=== PATIENT | male | born 1985 | race Caucasian/White ===

== ENCOUNTER 2016-09-01 01:00 | Inpatient (IN) | payer BC, MEDICARE ==
--- NOTE | ~2016-09-01 | DS ---
Unit #: [id number] #: [id number] Patient: IRINA ESTRADA [id number] [place] [address] [id number] MR#: [id number] NAME: IRINA ESTRADA ROOM: [facility] Age: 31 Sex: M Admission Date: 09/01/2016 : 1985 Discharge Date: 09/04/2016 Attending Physician: Terence Banks M.D. Primary Care Physician: Primary Care Physician No DISCHARGE SUMMARY REASON FOR ADMISSION The patient is a 31-year-old single white male, admitted to the [address] [place] [address] for alcohol detox. HOSPITAL COURSE The patient was admitted to the [address] [place] [address] unit, placed on routine detoxification protocol for alcohol. He was restarted on Seroquel with dosage increased to 400 mg at h.s. He continued to complain a poor sleep and staff reported that he was sleeping quite well on the hospital. The patient demanded an initiation of Ativan at nighttime, stating "it is the only thing that helps sleep." It was explained to the patient that this medication could not be provided given his extensive substance abuse history. The patient did receive one time dose of Rozerem on the evening of 09/03/2016, but did not respond well with that medication. On 09/04/2016 his detox was completed and he requested discharge. FINAL DIAGNOSES Alcohol use disorder; restless legs syndrome. DISPOSITION ON DISCHARGE The patient is discharged on the following medications: Requip 2 mg at 8 p.m. for restless legs syndrome; Seroquel 400 mg at bedtime for mood stabilization. DISCHARGE INSTRUCTIONS No dietary or physical restrictions were placed on the patient at the time of discharge. FOLLOWUP Follow up will take place in the chemical dependence treatment program provided by this facility and through the auspices of [facility]. PROGNOSIS The patient's prognosis is considered fair. Dictated by... Terence Banks M.D. ALMITA/kashif TD: 09/05/2016 02:52 Unit #: [id number] #: [id number] Patient: IRINA ESTRADA JOB #: [id number] DISCHARGE SUMMARY Page 1 of 1 X Terence Banks MD DISCHARGE SUMMARY
--- NOTE | ~2016-09-01 | PN ---
Unit #: [id number] #: [id number] Patient: IRINA ESTRADA [id number] [facility] [address] [place] [address] [id number] MR#: [id number] NAME: IRINA ESTRADA ROOM: P207 Age: 31 Sex: M Admission Date: 09/01/2016 : 1985 Attending Physician: Terence Banks M.D. Admitting Physician: Terence Banks M.D. Primary Care Physician: Primary Care Physician Roberta CORBETT NOTES DATE 09/03/2016 DISCUSSION The patient is active within the therapeutic milieu but continues to complain of severe insomnia which he states is the trigger for his alcohol use. He states to this physician "Ativan is the only thing that works." I have explained to the patient the Ativan is off the table given his substance abuse history. We will instead try Rozerem 8 mg this evening in hopes of addressing the patient's sleep issues with a non-abusable medication. Dictated by... Terence Banks M.D. CB/isidro TD: 09/03/2016 14:57 JOB #: [id number] CAT CORBETT NOTES Page 1 of 1 X Terence Banks MD PROGRESS NOTE
--- NOTE | ~2016-09-01 | HP ---
Unit #: [id number] #: [id number] Patient: PETAR ESTRADA [id number] [place] [address] [id number] MR#: [id number] NAME: PETAR ESTRADA ROOM: P207 Age: 31 Sex: M Admission Date: 09/01/2016 : 1985 Attending Physician: Terence Banks M.D. Admitting Physician: Terence Banks M.D. Primary Care Physician: Primary Care Physician No HISTORY AND PHYSICAL HISTORY OF PRESENT ILLNESS Petar is a 31 year old admitted to [address] [place] [address] because of his continued abuse of alcohol. PAST MEDICAL HISTORY 1. Long history of alcohol abuse. He continues to drink. 2. History of benzodiazepine abuse. He denies anything currently. PAST SURGICAL HISTORY Nothing reported. ALLERGIES No known drug allergies. SOCIAL HISTORY He smokes one pack per day. Drinks at least a fifth of liquor on a daily basis. Has a history of abusing benzodiazepines but denies anything currently. FAMILY HISTORY Medically noncontributory. REVIEW OF SYSTEMS CONSTITUTIONAL: No fever or chills. HEENT: Denies any sore throat, ear pain or runny nose. CARDIOVASCULAR: Denies chest pain, irregular heart rhythm or palpitations. CHEST: Denies shortness of breath or cough. No hemoptysis. GASTROINTESTINAL: Denies nausea, vomiting, diarrhea or chronic constipation. ENDOCRINE: Denies history of increased thirst or urination. No recent significant weight loss or gain. GENITOURINARY: Denies dysuria, frequency, or hematuria. SKIN: Denies any rashes. HEMATOLOGIC: Denies history of increased bleeding or bruising. MUSCULOSKELETAL: Denies any hot, swollen joints. No generalized muscle pain. NEUROLOGIC: Denies problems with vision or speech. No frequent, severe headaches. No numbness, tingling or weakness in any extremities. Denies loss of bladder or bowel control. CURRENT MEDICATIONS 1. Requip 2 mg q.h.s. Unit #: [id number] #: [id number] Patient: PETAR ESTRADA 2. Seroquel 300 mg q.h.s. 3. Inderal 20 mg t.i.d. 4. Multivitamin 1 q day 5. Milk of Magnesia p.r.n. 6. Maalox p.r.n. 7. Tylenol p.r.n. 8. Detox protocol PHYSICAL EXAMINATION GENERAL: Alert, well-nourished, in no apparent distress. VITAL SIGNS: Blood pressure 132/92, heart rate 100, respirations 16, temperature 98.6. WEIGHT: 226 pounds. HEIGHT: 6'2". SKIN: Warm and dry without rash or lesion. HEENT: Normocephalic. TMs not viewed. Oral and nasal passages clear. Conjunctivae clear. Pupils equal, round and reactive to light and accommodation. Extraocular movements intact. NECK: Supple without lymphadenopathy or thyromegaly. HEART: Regular rate and rhythm without murmur. LUNGS: Clear. ABDOMEN: Soft, nontender. : Not done. EXTREMITIES: No evidence of cyanosis, clubbing or edema. Moves all extremities without focal deficit. NEUROLOGICAL: Grossly within normal limits. Cranial Nerves: II: Visual macias are intact. III, IV AND : Extraocular movements are intact. Pupils are equal, round and reactive to light. V: Facial sensation is grossly normal. VII: Facial movements and expression are normal. VIII: Auditory acuity grossly intact. IX, X: Uvula is midline. Phonation is normal. XI: Patient shrugs shoulders and turns head normally. XII: Tongue protrudes in the midline. Sensory and Motor Function: Sensory and motor sensation is grossly normal. Motor: moves all extremities well. Coordination: Gait is normal. Deep Tendon Reflexes: Intact. IMPRESSION Psychiatric admission RECOMMENDATIONS PSYCHIATRIC: Per psychiatrist. MEDICAL: I see no contraindications to participating in facility's activities. MEDICAL PROGNOSIS Good. MEDICAL CONDITION Stable. Dictated by... Alyssa Coffman P.A.-C. for Unit #: [id number] #: [id number] Patient: PETAR ESTRADA Sridhar Walton/donald TD: 09/02/2016 00:00 JOB #: [id number] HISTORY AND PHYSICAL Page 1 of 1 X Alyssa Coffman HISTORY AND PHYSICAL
--- NOTE | ~2016-09-01 | PA ---
Unit #: [id number] #: [id number] Patient: IRINA ESTRADA [id number] [place] [address] [id number] MR#: [id number] NAME: IRINA ESTRADA ROOM: P214 Age: 31 Sex: M Admission Date: 09/01/2016 : 1985 Date of Assessment: 09/01/2016 Attending Physician: Terence Banks M.D. Admitting Physician: Terence Banks M.D. Primary Care Physician: Primary Care Physician No PSYCHIATRIC ASSESSMENT IDENTIFYING INFORMATION The patient is a 31-year-old white male admitted to the [facility] with recurrent alcohol use and some suicidal ideation. INFORMANT(S) Chart, patient could not be aroused for interview. CHIEF COMPLAINT None given. HISTORY OF PRESENT ILLNESS The patient is a 31-year-old white male who was apparently last admitted to this facility in 2015. The patient presented to this facility last evening accompanied by his mother. He was reporting that he has been drinking up to a fifth of hard liquor on a daily basis secondary to his inability sleep though the patient is snoring loudly during today's attempted interview. The patient was reporting more suicidal ideation secondary to his inability to sleep and said that he had multiple plans though he would not divulge them and states he has never acted on these thoughts before. The patient when seen today is noted to be sleeping soundly and multiple attempts to arouse him are bradley unsuccessful. PAST PSYCHIATRIC HISTORY The chart seems to indicate that the patient was admitted to this facility in May 2015. FAMILY HISTORY Noncontributory. SOCIAL HISTORY The patient has been drinking a fifth of hard liquor on a daily basis. He is not presently employed per chart. MEDICATION HISTORY 1. Seroquel. 2. Propranolol. 3. Ropinirole. ALLERGIES None. MENTAL STATUS EXAM At this time, reveals the patient to be a soundly sleeping male Unit #: [id number] #: [id number] Patient: IRINA ESTRADA appearing his stated age. He is in no apparent physical distress at time of examination. Attempts to arouse him are bradley unsuccessful. ASSETS AND LIABILITIES Assets to be assessed. Liabilities, lack of resources. ADMITTING DIAGNOSES 1. Alcohol use disorder. 2. Mood disorder, unspecified. PSYCHIATRIC PLAN/TREATMENT GOALS The patient remains hospitalized for safety and stabilization. Routine detoxification protocol for alcohol has been initiated. The patient will participate in appropriate gregory and milieu activities. ESTIMATED LENGTH OF STAY Five to seven days. ADDENDUM At the time of this evaluation, the patient's vital signs are as follows: heart rate 102, blood pressure 110/71. CIWA score 6. Dictated by... Terence Banks M.D. ALMITA/waylon TD: 09/01/2016 15:37 JOB #: [id number] PSYCHIATRIC ASSESSMENT Page 1 of 1 X Terence Banks MD X PSYCHIATRIC ASSESSMENT
[2016-09-01 09:37] LABS: URINE APPEARANCE CLEAR; URINE BILIRUBIN NEG (NEG); URINE BLOOD NEG (NEG); URINE COLOR YELLOW; URINE GLUCOSE NEG (NEG); URINE KETONE 2+ (NEG); URINE LEUKOCYTE ESTERASE NEG (NEG); URINE NITRATE NEG (NEG); URINE PROTEIN TRACE (NEG); URINE SPECIFIC GRAVITY 1.031 (1.003-1.035)
[2016-09-01 09:45] LABS: BASOPHIL% 0.4 % (0-2.5); DIFF IND NO; EOSINOPHIL# 0.1 X10e3 (0-0.7); EOSINOPHIL% 1.9 % (0.0-7.0); HEMATOCRIT 42.3 % (38.0-50.0); HEMOGLOBIN 14.8 gm/dL (13.0-16.0); LYMPHOCYTE% 18.1 % (17.0-45.0); MEAN CELL VOLUME 90.5 FL (83-96); MEAN CORPUSCULAR HEMOGLOBIN 31.7 PG (28-34); MEAN PLATELET VOLUME 7.4 FL (6.5-11.5); MONOCYTE# 0.6 X10e3 (0-1.0); MONOCYTE% 10.4 % (3.0-12.0); NEUTROPHIL# 3.7 X10e3 (1.5-7.1); NEUTROPHIL% 69.2 % (40-75); PLATELET COUNT 131 X10e3 (140-420); RED BLOOD COUNT 4.67 X10e (3.90-5.60); RED CELL DISTRIBUTION WIDTH 13.6 % (11.0-15.5); WHITE BLOOD COUNT 5.3 X10e3 (4.0-10.5)
[2016-09-01 09:57] LABS: ALBUMIN SERUM 4.3 g/dL (3.5-5.0); BILIRUBIN,TOTAL 1.3 mg/dL (0.2-2.0); BUN/CREATININE RATIO 20.9; CALCIUM SERUM 9.2 mg/dL (8.4-10.2); CREATININE SERUM 1.1 mg/dL (0.6-1.4)
[2016-09-01 10:07] LABS: AMPHETAMINE NEG (NEG); BARBITURATES NEG (NEG); BENZODIAZEPINES NEG (NEG); COCAINE NEG (NEG); MARIJUANA NEG (NEG); OPIATES NEG (NEG); TRICYCLIC ANTIDEPRESSANTS POS (NEG); U METHADONE NEG (NEG)
== END 2016-09-04 16:05 | disposition home or self-care (01) | DRG 897 ==
LOC: P2S 04:02
PROVIDERS: Specialist
PROC: HZ2ZZZZ Detoxification Services for Substance Abuse Treatment (ICD-10-PCS; principal; 2016-09-01)
DX: F10.20 Alcohol dependence, uncomplicated (principal); F39 Unspecified mood [affective] disorder; F17.200 Nicotine dependence, unspecified, uncomplicated; G25.81 Restless legs syndrome
CPT/HCPCS: 80053; 80307; 81003; 85025; 86592